=== PATIENT | male | born 1955 | race Caucasian/White ===

== ENCOUNTER 2023-07-09 08:01 | Day surgery (SDC) | payer MEDICARE ==
[2023-07-08 12:55] VITALS: BP 151/76; PULSE 54; RESP 18
[~2023-07-09] VITALS: Ht 180.3 cm; Wt 85.3 kg
[2023-07-09] VITALS (11 sets, daily range): BP systolic 120–140; BP diastolic 63–75; PULSE 50–61; RESP 16–18
[~2023-07-09 08:01] MED LIST: ALBU90AE IH; AMLO-257 PO; ATOR40TA71 PO; FLUT16H NS; FLUT1BLS15 IH; LISI20TA24 PO; LORA10TA7 PO; MELO-106 PO; METO25TA6 PO; OCEAN NASAL; OMEP40CA21 PO
[2023-07-09] MEDS ORDERED: LIDOCAINE PF 100MG/5ML (2%) SYRINGE 5ML ONE (10:55)
[2023-07-09] MEDS ORDERED: PROPOFOL 10 MG/ML 20ML VIAL IV ONE ×2 (10:55)
== END 2023-07-09 12:37 | disposition home or self-care (01) ==
LOC: DAH 08:01 → ENDO 08:01
PROVIDERS: ATTEND Internal Medicine Gastroenterology
DX: Z12.11 Encounter for screening for malignant neoplasm of colon (principal); K29.70 Gastritis, unspecified, without bleeding; K44.9 Diaphragmatic hernia without obstruction or gangrene; R13.10 Dysphagia, unspecified; K63.5 Polyp of colon; K62.1 Rectal polyp; I10 Essential (primary) hypertension; E78.5 Hyperlipidemia, unspecified; J44.9 Chronic obstructive pulmonary disease, unspecified; Z82.49 Family history of ischemic heart disease and other diseases of the circulatory system; Z79.899 Other long term (current) drug therapy; Z87.891 Personal history of nicotine dependence; Z98.890 Other specified postprocedural states
CPT/HCPCS: 43239; 45385; A4215; A4216; A4221; A4222; A4223; A4606; A4620; A4649; A4663; A7002; J2001; J2704; J7030; 93005; J3490